=== PATIENT | female | born 1970 | race Caucasian/White ===

== ENCOUNTER 2019-01-30 08:49 | Day surgery (SDC) | payer BC ==
[2019-01-30] MEDS: BUPIVACAINE 0.5% (SDV) 30 ML INJ
[2019-01-30] MEDS ORDERED: ONDANSETRON 4 MG INJ IV (10:00)
[2019-01-30] MEDS ORDERED: PROCHLORPERAZINE 10 MG INJ IV (10:00)
[2019-01-30] MEDS ORDERED: MEPERIDINE 25 MG INJ IV (10:00)
[2019-01-30] MEDS ORDERED: HYDROmorphONE 1 MG/5 ML IV SYRINGE IV ×3 (10:00)
[2019-01-30] MEDS ORDERED: OXYCODONE/ACETAMINOPHEN (5/325) TAB PO (10:00)
[2019-01-30] MEDS ORDERED: FENTAnyl 50 MCG/ML VIAL (10:05)
[2019-01-30] MEDS ORDERED: MIDAZOLAM 1 MG/ML 2 ML INJ (10:11)
[2019-01-30] MEDS ORDERED: DEXAMETHASONE 4 MG/ML 5 ML INJ (10:12)
[2019-01-30] MEDS ORDERED: CEFAZOLIN 1 GM INJ (10:12)
[2019-01-30] MEDS ORDERED: ONDANSETRON 4 MG INJ (10:12)
[2019-01-30] MEDS ORDERED: FAMOTIDINE 20 MG INJ (10:12)
[2019-01-30] MEDS ORDERED: PROPOFOL 20 ML (10:12)
[2019-01-30] MEDS ORDERED: LIDOCAINE 2% (SDV) 5 ML INJ (10:12)
[2019-01-30 10:17] LABS: ADD MAN DIFF? NO
[2019-01-30 10:18] LABS: BASOPHILS % 0.6 % (0.0-2.0); EOSINOPHILS # 0.2 10^3/ul (0.0-0.5); EOSINOPHILS % 2.5 % (0.0-7.0); HEMATOCRIT 39.3 % (37.0-47.0); HEMOGLOBIN 12.8 g/dl (12.0-16.0); LYMPHOCYTES # 2.5 10^3/ul (0.8-2.9); LYMPHOCYTES % 34.6 % (15.0-51.0); MEAN CORPUSCULAR HEMOGLOBIN 26.9 pg (29.0-33.0); MEAN CORPUSCULAR HGB CONC 32.6 g/dl (32.0-37.0); MEAN CORPUSCULAR VOLUME 82.6 fl (82.0-101.0); MEAN PLATELET VOLUME 8.4 fl (7.4-10.4); MONOCYTE # 0.6 10^3/ul (0.3-0.9); MONOCYTES % 8.1 % (0.0-11.0); NEUTROPHIL # 3.9 10^3/ul (1.6-7.5); NEUTROPHILS % 53.6 % (39.0-77.0); PLATELET COUNT 342 10^3/UL (140-415); RED BLOOD COUNT 4.76 10^6/ul (4.20-5.40); RED CELL DISTRIBUTION WIDTH 13.8 % (11.5-14.5)
[2019-01-30 10:18] LABS: WHITE BLOOD COUNT 7.2 10^3/ul (4.8-10.8)
[2019-01-30 10:36] LABS: ALANINE AMINOTRANSFERASE 48 IU/L (13-69); ALBUMIN 3.9 g/dl (3.3-4.9); ALBUMIN/GLOBULIN RATIO 1.44; ALKALINE PHOSPHATASE 89 IU/L (42-121); ANION GAP 7 (5-13); ASPARTATE AMINO TRANSFERASE 36 IU/L (15-46); BILIRUBIN,INDIRECT 0.3 mg/dl (0-1.1); BILIRUBIN,TOTAL 0.3 mg/dl (0.2-1.3); BLOOD UREA NITROGEN 13 mg/dl (7-20); CALCIUM 9.2 mg/dl (8.4-10.2); CARBON DIOXIDE 25 mmol/L (21-31); CHLORIDE 108 mmol/L (97-110); CREATININE 0.82 mg/dl (0.44-1.00); Estimated GFR > 60 mL/min (>60); GLUCOSE 95 mg/dl (70-220); POTASSIUM 3.7 mmol/L (3.5-5.1); SODIUM 140 mmol/L (135-144); TOTAL PROTEIN 6.6 g/dl (6.1-8.1)
[2019-01-30 10:38] LABS: INR 0.96; PROTIME 12.9 Sec (11.9-14.9)
[2019-01-30] MEDS ORDERED: EPHEDrine 50 MG INJ (10:49)
[2019-01-30 10:50] LABS: PARTIAL THROMBOPLASTIN TIME 37.7 Sec (23.0-35.0)
[2019-01-30] MEDS: DIPHENHYDRAMINE 50 MG INJ IV (11:18)
[2019-01-30] MEDS: FENTAnyl 50 MCG/ML VIAL IV (11:18)
[2019-01-30] MEDS ORDERED: EPHEDrine SULFATE 50 MG/5 ML SYG IV (11:30)
[2019-01-30] MEDS: ACETAMINOPHEN 1000MG/100ML IV 100 ML IVPB (11:49)
== END 2019-01-30 13:20 | disposition home or self-care (01) ==
LOC: SDS 08:49
DX: G56.01 Carpal tunnel syndrome, right upper limb (principal); M65.321 Trigger finger, right index finger; M65.331 Trigger finger, right middle finger; M65.341 Trigger finger, right ring finger; M65.351 Trigger finger, right little finger; M65.4 Radial styloid tenosynovitis [de Quervain]; M67.431 Ganglion, right wrist; E78.5 Hyperlipidemia, unspecified
CPT/HCPCS: 25000; 80053; 85025; 85610; 85730